=== PATIENT | male | born 1970 | race Caucasian/White ===

== ENCOUNTER 2021-06-09 07:31 | Day surgery (SDC) | payer MEDICARE ==
[~2021-06-09] VITALS: Ht 170.2 cm; Wt 154.6 kg
[2021-06-09] MEDS ORDERED: fentaNYL/PF 50MCG/1 ML 2ML syringe ONE (07:38)
[2021-06-09] MEDS ORDERED: diphenhydrAMINE 50 mg/ml inj ONE (07:39)
[2021-06-09] MEDS ORDERED: MIDAZolam 1 MG/ML 5ML VIAL ONE (07:39)
[2021-06-09 07:40] VITALS: BP 131/79
[2021-06-09] MEDS ORDERED: vit d3 (07:43)
[2021-06-09] MEDS ORDERED: norco 10/325 (07:45)
[2021-06-09] MEDS ORDERED: MELO-100 PO (07:46)
[2021-06-09 09:30] VITALS: BP 147/84
[2021-06-09 09:40] VITALS: BP 140/75
[2021-06-09 09:50] VITALS: BP 139/78
[2021-06-09 10:00] VITALS: BP 135/86
== END 2021-06-09 10:05 | disposition home or self-care (01) ==
LOC: GI LAB 07:31
PROVIDERS: ATTEND Internal Medicine Gastroenterology
DX: R19.5 Other fecal abnormalities (principal); D12.5 Benign neoplasm of sigmoid colon
CPT/HCPCS: 45381; 45385; 99153; C1773; G0500; J1200; J2250; J3010; J7040; Z7512; 45335; 99152; A4620